=== PATIENT | male | born 1995 | race Caucasian/White ===

== ENCOUNTER 2019-05-11 12:59 | Emergency (ER) | payer OTHER ==
[~2019-05-11] VITALS: Ht 180.3 cm; Wt 94.3 kg
[2019-05-11] MEDS ORDERED: IBUPROFEN 600 MG TABLET PO ONE (13:15)
[2019-05-11] MEDS ORDERED: IBUPROFEN 600 MG TABLET ONE (13:15)
--- NOTE | 2019-05-11 13:47 | NUR ---
Patient discharged to home in stable conditon. Written and verbal after care instructions given to patient. Patient verbalizes understanding of instructions.
== END 2019-05-11 13:49 | disposition home or self-care (01) ==
LOC: ER 13:01
DX: S62.522A Displaced fracture of distal phalanx of left thumb, initial encounter for closed fracture (principal); W21.05XA Struck by basketball, initial encounter; Y93.89 Activity, other specified; Y92.89 Other specified places as the place of occurrence of the external cause; Y99.8 Other external cause status
CPT/HCPCS: 73140; A4663